=== PATIENT | female | born 1985 | race Caucasian/White ===

== ENCOUNTER 2016-11-08 15:36 | Emergency (ER) | payer OTHER ==
[~2016-11-08 15:36] MED LIST: ALBUTEROL17 GM INH; BENZONATATE PO; ROBITUSSIN A-C10 ML PO; TUSSIONEX PENN473 ML PO
== END 2016-11-08 16:06 | disposition home or self-care (01) ==
LOC: SED 15:36
DX: T16.1XXA Foreign body in right ear, initial encounter (principal); J04.0 Acute laryngitis; F17.210 Nicotine dependence, cigarettes, uncomplicated; X58.XXXA Exposure to other specified factors, initial encounter
CPT/HCPCS: 69200; 99283

== ENCOUNTER 2017-01-15 13:46 | Emergency (ER) | payer OTHER ==
--- NOTE | ~2017-01-15 | CR173 ---
[facility]. [facility] A Service of [facility] RADIOLOGY TEXT RESULTS PATIENT: KRISTAN DUTTON LOCATION: SED : 83 UNIT #: [id number] AGE: [address]: LUIS PINEDA SEX: F ORDER DR: [id number] [place] [id number] E MR#: [id number] Acc #: [id number] NAME: KRISTAN DUTTON : 1985 SEX: F STUDY DATE/TIME: 01/15/2017 14:25 UNIT: SED ROOM: STUDY DESCRIPTION: CR Knee 3 Views Rt Attending Physician: Luis Pineda Aprn Ordering Physician: Luis Pineda Aprn Primary Care Physician: Sherita Link A.P.R.N. MEDICAL IMAGING REPORT This report is preliminary unless electronic signature is present. EXAM Right knee 01/15 INDICATIONS Knee pain after twisting injury 2 weeks ago. FINDINGS 3 views of the right knee were obtained. No fracture or malalignment is seen. There is no joint effusion. IMPRESSION Normal right knee. Dictated by... Preet Benitez Jr., M.D. THIS IS AN ELECTRONICALLY VERIFIED REPORT Preet Benitez Jr., M.D. at 01/17/2017 7:21 AM RLK/pcl TD: 01/16/2017 06:43 JOB #: [id number] MEDICAL IMAGING REPORT Page 1 of 1
== END 2017-01-15 15:52 | disposition home or self-care (01) ==
LOC: SED 13:46
DX: S83.411A Sprain of medial collateral ligament of right knee, initial encounter (principal); F17.210 Nicotine dependence, cigarettes, uncomplicated; X50.9XXA Other and unspecified overexertion or strenuous movements or postures, initial encounter; Y92.009 Unspecified place in unspecified non-institutional (private) residence as the place of occurrence of the external cause
CPT/HCPCS: 29530; 73562; 99283